=== PATIENT | female | born 1985 | race African-American/Black ===

== ENCOUNTER 2022-08-04 20:55 | Inpatient (IN) | payer OTHER ==
[2022-08-04] MEDS ORDERED: LACTATED RINGERS SOLUTION 1,000 ML IV ONE (21:30)
[2022-08-04 23:36] LABS: BASO % 0.4 % (0-2.0); EOS % 1.1 % (0-4.5); HEMATOCRIT 31.9 % (32.4-45.2); HEMOGLOBIN 10.6 GM/dL (10.7-15.3); LYMPH % 16.3 % (8-40); MCH 29.3 pg (25.7-33.7); MCHC 33.1 g/dl (32.0-36.0); MEAN CELL VOLUME 88.5 fl (80-96); MONO % 14.4 % (3.8-10.2); NEUT % 67.8 % (42.8-82.8); PLATELET COUNT 201 10^3/uL (134-434); RBC 3.61 M/mm3 (3.60-5.2); RDW 14.7 % (11.6-15.6); WHITE BLOOD COUNT 7.3 K/mm3 (4.0-10.0)
[2022-08-04 23:38] LABS: EPI CELLS >36 /uL (0-25.1); HYALINE CASTS 2 /uL (0-3.1); URINE APPEARANCE CLEAR; URINE BACTERIA 823 /uL (0-1359); URINE BILIRUBIN NEGATIVE (NEGATIVE); URINE COLOR YELLOW; URINE GLUCOSE (UA) 2+ (NEGATIVE); URINE KETONE TRACE (NEGATIVE); URINE LEUK ESTERASE NEGATIVE (NEGATIVE); URINE NITRITE NEGATIVE (NEGATIVE); URINE PROTEIN 1+ (NEGATIVE); URINE RBC 17 /uL (0-23.9); URINE UROBILINOGEN 0.2 mg/dL (0.2-1.0); URINE WBC 40 /uL (0-25.8)
[2022-08-04] MEDS ORDERED: BETAMET ACET/BETAMET NA PH 30 MG/5 ML VIAL ONE (23:45)
[2022-08-05] MEDS ORDERED: BETAMET ACET/BETAMET NA PH 30 MG/5 ML VIAL IM ONE
[2022-08-05] MEDS ORDERED: MAGNESIUM 4GM/H20 - 4 GM/100 ML IVPB IVPB ONE ×2 (00:23→00:30)
[2022-08-05] MEDS ORDERED: MAGNESIUM SULFATE 20GM/500ML - 20 GM/500 ML INFUS.BAG ONE (00:23)
[2022-08-05] MEDS ORDERED: MAGNESIUM SULFATE 20GM/500ML 20 GM/500 ML INFUS.BAG IVPB ONE (00:30)
[2022-08-05 01:02] LABS: ACTIVATED PTT 27.7 SECONDS (25.2-36.5); BLOOD UREA NITROGEN 5.5 mg/dL (7-18); CALCIUM 8.7 mg/dL (8.5-10.1); INR 1.03 (0.83-1.09); PROTHROMBIN TIME (PATIENT) 11.9 SEC (9.7-13.0)
[2022-08-05 01:05] LABS: CREATININE 0.7 mg/dL (0.55-1.3)
[2022-08-05 01:18] VITALS: BP 116/73; PULSE 114; RESP 18; TEMP 98.2; BMI 28.5
[2022-08-05 01:58] LABS: HIV INTERPRETATION NEGATIVE (NEGATIVE)
== END 2022-08-05 01:40 | disposition short-term general hospital (02) | DRG 566 ==
LOC: JDEL 20:55 → JLDR 23:30
PROVIDERS: ADMIT Student in an Organized Health Care Education/Training Program; ATTEND Student in an Organized Health Care Education/Training Program
DX: O26.873 Cervical shortening, third trimester (principal); Z3A.30 30 weeks gestation of pregnancy
CPT/HCPCS: 36415; 59025; 76801-TC; 76817-TC; 80048; 81003; 84443; 85025; 85610; 85730; 86780; 86850; 86900; 86901; 87086; 87186; 87340; 87389; 93005; 93010; 96372; C9803-CS; U0003; U0005